=== PATIENT | female | born 1950 | race Caucasian/White ===

== ENCOUNTER 2020-02-15 01:33 | Inpatient (IN) | payer OTHER ==
[~2020-02-15] VITALS: Ht 170.2 cm; Wt 42.0 kg
[~2020-02-15 01:33] MED LIST: AMLO-150 PO
--- NOTE | 2020-02-15 01:40 | NUR ---
69 YEAR OLD FEMALE TO ED VIA [facility] FOR ALTERED MENTAL STATUS 2/2 CRYSTAL METH USE TONIGHT. SHE IS SHAKING UNCONTROLABLY AND SCREAMING. SHE WAS PUT INTO POINT RESTRAINTS UPON ARRIVAL SHE IS SCRTATCHING STAFF AND UNABLE TO COMPLY WITH DIRECTIONS. RESTRAINTS PLACED FOR SAFETY OF STAFF AND PATIENT. SEIZURE PADS ALSO PLACED ON STRETCHER.
[2020-02-15] MEDS ORDERED: ZIPRASIDONE 20 MG INJ IM ONE ×2 (01:47→02:00)
--- NOTE | 2020-02-15 01:50 | NUR ---
Geodon given IM Left ventrogluteal region.
--- NOTE | 2020-02-15 02:33 | NUR ---
iv established, md and care team aware of vs. preparing to start fluid bolus. Patient also placed on face mask w 6L of O2.
[2020-02-15 02:43] LABS: MEAN CORPUSCULAR HEMOGLOBIN 31.3 pg (27.0-34.8); MEAN CORPUSCULAR HGB CONC 33.5 g/dL (32.4-35.8); MEAN PLATELET VOLUME 7.4 fL (7.4-10.4); PLATELET COUNT 346 x10^3/uL (130-400); RED BLOOD COUNT 4.64 x10^6/uL (3.82-5.3)
--- NOTE | 2020-02-15 02:45 | NUR ---
patient remains in 4 point restraints at this time.
[2020-02-15 02:48] LABS: ALANINE AMINOTRANSFERASE 18 U/L (12-78); ANION GAP 14 mmol/L (5-15); CALCIUM 9.6 mg/dL (8.5-10.1); CHLORIDE 101 mmol/L (98-107)
[2020-02-15 02:51] LABS: ALKALINE PHOSPHATASE 103 U/L (45-117); BILIRUBIN,TOTAL 0.9 mg/dL (0.2-1.0); CREATINE KINASE, TOTAL 476 U/L (26-192); CREATININE 2.32 mg/dL (0.55-1.02); TOTAL PROTEIN 7.9 g/dL (6.4-8.2)
[2020-02-15] MEDS ORDERED: SODIUM CHLORIDE 0.9% 1,000ML IVBOLUS ONE ×2 (03:00→04:00)
[2020-02-15 03:10] LABS: MD YES
[2020-02-15 03:13] LABS: BAND#(MANUAL) 0.84 x10^3/uL; BANDS%(MANUAL) 4 % (0-7); EOS#(MANUAL) 0.21 x10^3/uL (0.0-0.4); EOS% (MANUAL) 1 % (1-7); LYMPH#(MANUAL) 0.84 x10^3/uL (1-3.4); LYMPHS% (MANUAL) 4 % (22-44); MONOS#(MANUAL) 0.63 x10^3/uL (0.3-2.7); MONOS% (MANUAL) 3 % (2-9); SEG#(MANUAL) 18.39 x10^3/uL (1.8-6.8); SEGS% (MANUAL) 88 % (42-75)
[2020-02-15 03:14] LABS: <PLATELET ESTIMATE> ADEQUATE; <PLT MORPHOLOGY> NORMAL PLT MORPH; <RBC MORPHOLOGY> NORMAL
[2020-02-15 03:30] LABS: TROPONIN I < 0.015 ng/mL (0.000-0.045)
--- NOTE | 2020-02-15 03:30 | NUR ---
2nd liter of NS hung.
[2020-02-15] MEDS ORDERED: CEFTRIAXONE PMX 1GM/50ML 50 ML ONE (03:44)
[2020-02-15] MEDS ORDERED: CEFTRIAXONE PMX 1GM/50ML 50 ML IV ONE (04:00)
[2020-02-15 04:16] LABS: MICROSCOPIC INDICATED
--- NOTE | 2020-02-15 04:35 | NUR ---
restraints removed per policy. patient is asleep and calm. O2 will be titrated off as well. Patient remains 100% on RA.
[2020-02-15 05:23] LABS: AMPHETAMINE SCREEN, URINE Positive (Negative); BARBITURATE SCREEN, URINE Negative (Negative); BENZODIAZEPINE SCREEN, URINE Positive (Negative); CANNABINOID SCREEN, URINE Positive (Negative); COCAINE SCREEN, URINE Negative (Negative); METHADONE SCREEN, URINE Negative (Negative); OPIATE SCREEN, URINE Negative (Negative)
--- NOTE | 2020-02-15 05:42 | NUR ---
attempted report, RN at lunch. Awaiting call back.
--- NOTE | 2020-02-15 05:57 | NUR ---
Report given to Dora. Preparing to transport.
[2020-02-15] MEDS: CEFTRIAXONE PMX 1GM/50ML 50 ML IV SCH (06:00)
[2020-02-15] MEDS ORDERED: LORazepam 2 MG/ML, 1ML IVPush PRN (06:00)
[2020-02-15] MEDS ORDERED: LABETALOL 5MG/ML, 20ML IVPush PRN (06:00)
[2020-02-15] MEDS ORDERED: ACETAMINOPHEN 325 MG TABLET PO PRN (06:00)
[2020-02-15] MEDS ORDERED: PROMETHAZINE 25 MG/ML, 1ML IM PRN (06:00)
[2020-02-15 07:08] VITALS: BP 125/82
[2020-02-15] MEDS: POTASSIUM CHLORIDE 20 MEQ, MAGNESIUM SULFATE 2 GM, THIAMINE 200 MG, MVI ADULT 10 ML, FO... IV SCH ×2 (09:00→20:54)
[2020-02-15 13:54] VITALS: BP 99/65
[2020-02-15 19:21] VITALS: BP 124/70
[2020-02-16 00:13] VITALS: BP 92/49
[2020-02-16 00:20] VITALS: BP 115/71
[2020-02-16] MEDS: CEFTRIAXONE PMX 1GM/50ML 50 ML IV SCH (03:55)
[2020-02-16 04:23] LABS: BASOPHILS % (AUTO) 1 % (0-1); EOSINOPHILS % (AUTO) 4 % (1-7); LYMPHOCYTES % (AUTO) 17 % (22-44); MEAN CORPUSCULAR HEMOGLOBIN 30.9 pg (27.0-34.8); MEAN CORPUSCULAR HGB CONC 33.2 g/dL (32.4-35.8); MEAN PLATELET VOLUME 7.8 fL (7.4-10.4); MONOCYTES % (AUTO) 7 % (2-9); NEUTROPHILS % (AUTO) 71 % (42-75); PLATELET COUNT 265 x10^3/uL (130-400); RED BLOOD COUNT 4.21 x10^6/uL (3.82-5.3); RED CELL DISTRIBUTION WIDTH 13.2 % (9.6-15.2)
[2020-02-16 04:31] LABS: MD NO
[2020-02-16 04:32] LABS: ANION GAP 4 mmol/L (5-15); CALCIUM 8.6 mg/dL (8.5-10.1); CHLORIDE 113 mmol/L (98-107)
[2020-02-16 04:34] LABS: CREATININE 1.02 mg/dL (0.55-1.02)
[2020-02-16 06:30] VITALS: BP 113/57
[2020-02-16] MEDS: POTASSIUM CHLORIDE 20 MEQ, MAGNESIUM SULFATE 2 GM, THIAMINE 200 MG, MVI ADULT 10 ML, FO... IV SCH (09:12)
[2020-02-16] MEDS ORDERED: POTASSIUM CHLORIDE 20 MEQ in SODIUM CHLORIDE 0.9% 250 ML IV ONE (11:00)
[2020-02-16 12:11] VITALS: BP 142/75
[2020-02-16 18:46] VITALS: BP 129/74
[2020-02-16] MEDS ORDERED: LEVO75TA PO (22:08)
[2020-02-17 00:06] VITALS: BP 139/83
[2020-02-17] MEDS: CEFTRIAXONE PMX 1GM/50ML 50 ML IV SCH (03:50)
[2020-02-17 05:35] VITALS: BP 122/84
[2020-02-17] MEDS: LEVOTHYROXINE 75 MCG TABLET PO SCH (05:36)
[2020-02-17 07:56] VITALS: BP 106/67
[2020-02-17] MEDS: POTASSIUM CHLORIDE 20 MEQ, MAGNESIUM SULFATE 2 GM, THIAMINE 200 MG, MVI ADULT 10 ML, FO... IV SCH (11:50)
[2020-02-17] MEDS ORDERED: PNEUMOC 13-VALENT VACC, 0.5 ML IM-VACC ONE (13:00)
[2020-02-17 13:15] VITALS: BP 151/67
[2020-02-17] MEDS ORDERED: FLU VACC QS2020-21(6MOS UP)/PF 60MCG/0.5 ML SYR IM ONE (13:30)
[2020-02-17 19:36] VITALS: BP 147/88
[2020-02-18 00:05] VITALS: BP 149/91
[2020-02-18] MEDS: CEFTRIAXONE PMX 2GM/50ML 50 ML IVPB SCH (03:45)
[2020-02-18 05:23] LABS: ANION GAP 6 mmol/L (5-15); CHLORIDE 111 mmol/L (98-107)
[2020-02-18 05:24] LABS: CREATININE 0.87 mg/dL (0.55-1.02)
[2020-02-18] MEDS: LEVOTHYROXINE 75 MCG TABLET PO SCH (05:40)
[2020-02-18 07:38] VITALS: BP 144/83
[2020-02-18] MEDS ORDERED: POTASSIUM CHLORIDE 20 MEQ TAB.ER.PRT PO ONE (08:30)
[2020-02-18] MEDS: POTASSIUM CHLORIDE 20 MEQ, MAGNESIUM SULFATE 2 GM, THIAMINE 200 MG, MVI ADULT 10 ML, FO... IV SCH (08:54)
[2020-02-18 12:40] VITALS: BP 174/81
[2020-02-18 19:46] VITALS: BP 152/89
[2020-02-19 01:22] VITALS: BP 129/67
[2020-02-19] MEDS: CEFTRIAXONE PMX 2GM/50ML 50 ML IVPB SCH (04:19)
[2020-02-19 04:44] LABS: BASOPHILS % (AUTO) 1 % (0-1); EOSINOPHILS % (AUTO) 6 % (1-7); LYMPHOCYTES % (AUTO) 17 % (22-44); MEAN CORPUSCULAR HEMOGLOBIN 31.3 pg (27.0-34.8); MEAN CORPUSCULAR HGB CONC 33.9 g/dL (32.4-35.8); MEAN PLATELET VOLUME 7.7 fL (7.4-10.4); MONOCYTES % (AUTO) 10 % (2-9); NEUTROPHILS % (AUTO) 66 % (42-75); PLATELET COUNT 300 x10^3/uL (130-400); RED BLOOD COUNT 4.53 x10^6/uL (3.82-5.3); RED CELL DISTRIBUTION WIDTH 13.1 % (9.6-15.2)
[2020-02-19 04:50] LABS: MD NO
[2020-02-19 04:56] LABS: ANION GAP 7 mmol/L (5-15); CALCIUM 8.9 mg/dL (8.5-10.1); CHLORIDE 109 mmol/L (98-107)
[2020-02-19] MEDS: LEVOTHYROXINE 75 MCG TABLET PO SCH (05:45)
[2020-02-19 06:30] VITALS: BP 165/99
[2020-02-19] MEDS ORDERED: POTASSIUM CHLORIDE 20 MEQ TAB.ER.PRT PO ONE (07:00)
[2020-02-19] MEDS ORDERED: TERBINAFINE 250MG TABLET PO SCH (09:00)
[2020-02-19 13:54] VITALS: BP 133/84
== END 2020-02-19 14:58 | disposition home or self-care (01) | DRG 871 ==
LOC: ED 04:55 → EDIP 05:07 → 4NE 06:30 → 3N 11:21
PROVIDERS: ADMIT Family Medicine; ATTEND Hospitalist
DX: A41.9 Sepsis, unspecified organism (principal); G92 Toxic encephalopathy; N17.0 Acute kidney failure with tubular necrosis; J96.01 Acute respiratory failure with hypoxia; E87.6 Hypokalemia; F10.10 Alcohol abuse, uncomplicated; F12.90 Cannabis use, unspecified, uncomplicated; F15.10 Other stimulant abuse, uncomplicated; F43.22 Adjustment disorder with anxiety; I10 Essential (primary) hypertension; J44.9 Chronic obstructive pulmonary disease, unspecified; N30.90 Cystitis, unspecified without hematuria; Z85.3 Personal history of malignant neoplasm of breast; T43.625A Adverse effect of amphetamines, initial encounter
CPT/HCPCS: 36415; 70450; 71045; 80048; 80053; 80307; 81001; 82550; 82607; 83605; 83735; 84145; 84443; 84484; 85025; 87040; 87077; 87086; 87186; 90686; 93005; 99285; G0378; J0696; J3411; J3475; J3480; J7042; J7030; J7050